=== PATIENT | male | born 1955 | race African-American/Black ===

== ENCOUNTER 2016-09-08 19:06 | Emergency (ER) | payer OTHER ==
[~2016-09-08] VITALS: Ht 188 cm; Wt 90.5 kg
[~2016-09-08 19:06] MED LIST: LATUDA80 MG PO; MIRTAZAPINE30 MG PO; PAROXETINE HCL20 MG PO; SEROQUEL300 MG PO; VITAMIN D5000 UNI1 PO
[2016-09-08 20:00] LABS: HEMATOCRIT 44.9 % (38.0-50.0); MCH 28.9 PG (29.0-34.0); MCHC 33.4 G/DL (30.0-36.0); MCV 86.5 FL (86-99); MEAN PLAT.VOLUME 9.1 uM^3 (9.0-12.4); PLATELET COUNT 182 K/uL (156-360); RBC DIS.WIDTH-CV 14.9 % (11.8-14.6); RBC DIS.WIDTH-SD 47.4 % (39-53); RED BLOOD COUNT 5.19 M/uL (4.00-5.50); WHITE BLOOD COUNT 4.6 K/uL (4.1-10.2)
[2016-09-08 20:21] LABS: CHLORIDE 106 mEq/L (99-109); POTASSIUM 3.8 mEq/L (3.7-5.4); SODIUM 139 mEq/L (136-147)
[2016-09-08 20:22] LABS: GLUCOSE 122 mg/dL (70-99)
[2016-09-08 20:24] LABS: ANION GAP 9 MEQ/L (2-14)
[2016-09-08 20:27] LABS: GFR ESTIMATE (CALCULATED) > 59 mL/min/; UREA NITROGEN (BUN) 12 mg/dL (9-23)
[2016-09-08 20:29] LABS: TROP-I INTERPRETATION NEGATIVE; TROPONIN-I < 0.01 ng/mL (0.0-0.30)
[2016-09-08 23:02] VITALS: BP 113/75
== END 2016-09-08 23:05 | disposition home or self-care (01) ==
LOC: EME 19:06
PROVIDERS: Emergency Medicine
DX: R55 Syncope and collapse (principal); R73.9 Hyperglycemia, unspecified; I51.7 Cardiomegaly; G89.29 Other chronic pain; M54.5 Low back pain; M51.9 Unspecified thoracic, thoracolumbar and lumbosacral intervertebral disc disorder; I10 Essential (primary) hypertension; Z87.891 Personal history of nicotine dependence
CPT/HCPCS: 71275; 80048; 84484; 85027; 93005; 99281; 99284; J2270; J2405; J7030

== ENCOUNTER 2016-11-03 11:58 | Emergency (ER) | payer OTHER ==
[~2016-11-03] VITALS: Ht 185.4 cm; Wt 85.7 kg
[2016-11-03 12:34] LABS: HEMATOCRIT 48.3 % (38.0-50.0); MCH 27.8 PG (29.0-34.0); MCHC 32.5 G/DL (30.0-36.0); MCV 85.6 FL (86-99); MEAN PLAT.VOLUME 9.3 uM^3 (9.0-12.4); PLATELET COUNT 206 K/uL (156-360); RBC DIS.WIDTH-CV 14.6 % (11.8-14.6); RBC DIS.WIDTH-SD 45.9 % (39-53); RED BLOOD COUNT 5.64 M/uL (4.00-5.50); WHITE BLOOD COUNT 5.5 K/uL (4.1-10.2)
[2016-11-03 12:56] LABS: CHLORIDE 106 mEq/L (99-109); POTASSIUM 4.4 mEq/L (3.7-5.4); SODIUM 137 mEq/L (136-147)
[2016-11-03 12:58] LABS: GLUCOSE 94 mg/dL (70-99)
[2016-11-03 12:59] LABS: ANION GAP 6 MEQ/L (2-14)
[2016-11-03 13:00] LABS: TOTAL BILIRUBIN 0.6 mg/dL (0.0-1.0)
[2016-11-03 13:01] LABS: ALKALINE PHOSPHATASE 63 IU/L (3-129)
[2016-11-03 13:02] LABS: GFR ESTIMATE (CALCULATED) > 59 mL/min/
[2016-11-03 13:03] LABS: UREA NITROGEN (BUN) 18 mg/dL (9-23)
[2016-11-03 13:05] LABS: LIPASE 34 U/L (1.0-51.0)
[2016-11-03 14:00] LABS: BILIRUBIN NEGATIVE; BLOOD NEGATIVE; COLOR YELLOW ((YELLOW)); GLUCOSE (STRIP) NEGATIVE; KETONES 5; LEUKOCYTES NEGATIVE; NITRITE NEGATIVE; PROTEIN (STRIP) 30; SPECIFIC GRAVITY 1.025 (1.000-1.030); UROBILINOGEN 0.2 MG/DL (0.2-1.0)
[2016-11-03 14:03] LABS: ADD MIUA? NO; UCUL ADDED? NO
[2016-11-03] MEDS ORDERED: BENTYL20 MG PO (17:43)
[2016-11-03 17:58] VITALS: BP 136/72
== END 2016-11-03 17:59 | disposition home or self-care (01) ==
LOC: EME 11:58
DX: R10.84 Generalized abdominal pain (principal); I10 Essential (primary) hypertension; Z87.891 Personal history of nicotine dependence
CPT/HCPCS: 74176; 80053; 81003; 83690; 85027; 99281; 99284

== ENCOUNTER → 2016-11-16 | Outpatient (CLI) | payer MEDICARE, OTHER ==
[~2016-11-16] MED LIST changes: +BENTYL20 MG PO
== END | disposition home or self-care (01) ==
LOC: CDC 11:45
DX: E11.9 Type 2 diabetes mellitus without complications (principal); R97.20 Elevated prostate specific antigen [PSA]; R94.31 Abnormal electrocardiogram [ECG] [EKG]
CPT/HCPCS: 93000

== ENCOUNTER 2017-04-30 17:27 | Emergency (ER) | payer OTHER ==
[~2017-04-30] VITALS: Ht 185.4 cm; Wt 86.4 kg
[2017-04-30 20:33] LABS: APPEARANCE SL.HAZY ((CLEAR)); BILIRUBIN NEGATIVE; BLOOD SMALL; COLOR AMBER ((YELLOW)); GLUCOSE (STRIP) NEGATIVE; KETONES 20; LEUKOCYTES NEGATIVE; NITRITE NEGATIVE; PROTEIN (STRIP) 30; SPECIFIC GRAVITY 1.029 (1.000-1.030)
[2017-04-30 20:41] LABS: BACTERIA RARE /HPF; EPITHELIAL CELLS RARE /HPF; MUCUS 3+ /LPF; RED BLOOD CELLS 0-5 /HPF (0-5); UCUL ADDED? NO; WHITE BLOOD CELLS 0-5 /HPF (0-5)
[2017-04-30 20:50] VITALS: BP 111/76
== END 2017-04-30 20:51 | disposition home or self-care (01) ==
LOC: EME 17:27
PROVIDERS: Physician Assistant
DX: J11.1 Influenza due to unidentified influenza virus with other respiratory manifestations (principal); F17.200 Nicotine dependence, unspecified, uncomplicated
CPT/HCPCS: 81003; 87651 90; 99281; 99284

== ENCOUNTER 2017-11-14 14:30 | Emergency (ER) | payer OTHER ==
[~2017-11-14] VITALS: Ht 186.7 cm; Wt 86.6 kg
[2017-11-14] MEDS ORDERED: MOTRIN800 MG PO (15:38)
[2017-11-14] MEDS ORDERED: LIDODERM 5% P1 PATCH TD (15:38)
[2017-11-14] MEDS ORDERED: FLEXERIL10 MG PO (15:38)
[2017-11-14 15:55] VITALS: BP 140/84
== END 2017-11-14 15:55 | disposition home or self-care (01) ==
LOC: EME 14:30
DX: S16.1XXA Strain of muscle, fascia and tendon at neck level, initial encounter (principal); S39.012A Strain of muscle, fascia and tendon of lower back, initial encounter; M79.605 Pain in left leg; V49.40XA Driver injured in collision with unspecified motor vehicles in traffic accident, initial encounter; Y92.488 Other paved roadways as the place of occurrence of the external cause; M25.78 Osteophyte, vertebrae; M47.892 Other spondylosis, cervical region; M47.896 Other spondylosis, lumbar region; Z87.891 Personal history of nicotine dependence
CPT/HCPCS: 72040; 72100; 99281; 99284